=== PATIENT | female | born 1980 | race Caucasian/White ===

== ENCOUNTER → 2018-12-25 | Outpatient (CLI) | payer OTHER | LOC: BRMIMAGING 13:13 | PROVIDERS: ATTEND Family Medicine | DX: N63.20 Unspecified lump in the left breast, unspecified quadrant (principal) | CPT/HCPCS: 76641-PO ==

== ENCOUNTER → 2019-03-07 | Outpatient (CLI) | payer OTHER | LOC: BRMIMAGING 13:07 ==